=== PATIENT | female | born 1960 | race Caucasian/White ===

== ENCOUNTER 2025-03-31 22:57 | Inpatient (IN) | payer MEDICARE, MEDICAID, SELFPAY ==
[2025-04-01 00:04] VITALS: BMI 34.5
[2025-04-01 00:05] VITALS: BP 137/67; PULSE 75; RESP 16; TEMP 36.5; O2SAT 97
--- NOTE | 2025-04-01 01:33 | PC.ADMIT ---
Pt is a 64yo female, admitted on CV to [facility] for treatment of SI. She presented with ongoing evidence of worsening depression with hopelessness and SI. She is worried that she will act on suicidal thoughts as she has done it in the past and revealed a plan to overdose on insulin. Pt with the history of suicidal attempt and multiple risk factors including intractable headaches and chronic pain. Per unit admission, Pt was calm and cooperative, A & O x4, denies SI/HI/AV/VH. She declined to signed any release forms, states I am tired now, I will do it tomorrow. Safety check was unremarkable and v/s done. Treatment plans and safety tools initiated. Hospitalist contacted for consultation. Pt c/o having sleep apnea and can not sleep without her CPAP machine. She was placed on 5 minutes check/equipment/CPAP observation at bedtime and 15 minutes observation at day time.
[2025-04-01 08:00] VITALS: BP 136/60; PULSE 60; RESP 18; TEMP 36.6; O2SAT 96
--- NOTE | 2025-04-01 08:15 | HO.PM.IMCN ---
History of Present Illness Data of Consult Service Date: 04/01/25 Primary Care Provider: Unknown Physician HPI Reason for consult: Medical H&P 64-year-old female with a past medical history of occipital neuralgia, migraines, opioid use in remission, hypertension, arthritis, aortic stenosis, history of stroke, primary adrenal insufficiency, insulin-dependent type 2 diabetes, hyperlipidemia, headaches, COURTNEY on CPAP, obesity, recurrent major depressive disorder, chronic low back pain and cirrhosis of the liver without ascites presented to the ED for 2 week long history of headaches. Her CTA head negative for dissection, large vessel occlusion or aneurysm, CTA neck without dissection or vessel occlusion, and MRI of the brain without evidence of acute intracranial pathology did not show any acute intracranial pathology. While in the hospital patient also expressed suicidal ideations and was admitted for further care. She was diagnosed with occipital neuralgia, she was started on gabapentin and they recommended follow up with the pain clinic for consideration of a nerve block after discharge. Review of Systems Review of Systems: Denies any shortness of breath, chest pain, dizziness, lightheadedness, abdominal pain or discomfort, nausea vomiting or diarrhea PMFSH Social History Household Members: None Housing: Apartment Do you presently have visiting nurse or other home services: Yes Patient Tobacco Use Status: Former Tobacco user Tobacco use type: Cigarette Smoked in Last 30 Days: No e-Cigarette/Vaping Use: Never Used Patient Interested in Nicotine Replacement: No Patient Given Instructions on How to Stop Smoking: No Second Hand Smoke Exposure: No Currently Displaying Signs/Symptoms of Drug Intoxication Withdrawal: No Have you been hit, kicked, punched, or otherwise hurt by someone within the past year? If so, by whom?: No Do you feel safe in your current relationship?: Yes Is there a partner from a previous relationship who is making you feel unsafe now?: No Are you made to feel afraid or neglected: No Advance Directives: No Advance Directives Information Provided: No Do you have thoughts of harming others: None Do you have a plan to hurt others: No Plan Recently lost weight without trying: No Eating poorly because of decreased appetite: No Nutrition Risks: No Nutritional Risk Patient : No : No Poor oral hygiene: No service: No Sexual orientation: Straight/Heterosexual Meds Allergies Allergy/AdvReac Type Severity Reaction Status Date / Time Penicillins (PCN) Allergy Rash Verified 04/01/25 00:43 Active Medications: Current Medications Acetaminophen (Acetaminophen 325 Mg Tablet) 975 mg PO Q6H PRN PRN Reason: Headache/Pain, Scale 1-10 Last Admin: 04/01/25 04:20 Dose: 975 mg Acetaminophen (Acetaminophen 325 Mg Tablet) 650 mg PO Q6H PRN PRN Reason: Headache/Pain, Scale 1-10 Al Hydroxide/Mg Hydroxide (Magnesium Hydrox/Alum Hydrox 30 Ml Oral.Susp) 30 ml PO Q6H PRN PRN Reason: Heartburn/Nausea Hydroxyzine HCl (Hydroxyzine Hcl 25 Mg Tablet) 25 mg PO Q6H PRN PRN Reason: mild anxiety Magnesium Hydroxide (Milk Of Magnesia 30 Ml Oral.Susp) 30 ml PO DAILY PRN PRN Reason: Constipation Nicotine Polacrilex (Nicotine Polacrilex 2 Mg Gum) 4 mg BUCCAL Q2H PRN PRN Reason: Nicotine Cravings Trazodone HCl (Trazodone Hcl 50 Mg Tablet) 50 mg PO BEDTIME MRX1 PRN PRN Reason: Insomnia Home Medications ?Medication ?Instructions ?Recorded ?Confirmed ?Last Taken ?Type acetaminophen 500 mg tablet 1,000 mg PO TID PRN Pain, Moderate 04/01/25 04/01/25 Unknown History aspirin 81 mg tablet,delayed 81 mg PO DAILY 04/01/25 04/01/25 Unknown History release atorvastatin 40 mg tablet 40 mg PO DAILY 04/01/25 04/01/25 Unknown History buspirone 10 mg tablet 10 mg PO TID 04/01/25 04/01/25 Unknown History celecoxib 200 mg capsule 200 mg PO BID 04/01/25 04/01/25 Unknown History cholecalciferol (vitamin D3) 25 25 mcg PO DAILY 04/01/25 04/01/25 Unknown History mcg (1,000 unit) capsule cyanocobalamin (vitamin B-12) 1,000 mcg PO DAILY 04/01/25 04/01/25 Unknown History 1,000 mcg tablet ferrous sulfate 325 mg (65 mg 325 mg PO 3XW 04/01/25 04/01/25 Unknown History iron) tablet,delayed release fludrocortisone 0.1 mg tablet 0.2 mg PO DAILY 04/01/25 04/01/25 Unknown History gabapentin 300 mg capsule 300 mg PO TID 04/01/25 04/01/25 Unknown History hydrocortisone 20 mg tablet 20 mg PO DAILY 04/01/25 04/01/25 Unknown History hydrocortisone 5 mg tablet 5 mg PO DAILY@1200 04/01/25 04/01/25 Unknown History hydrocortisone sod succ (PF) 100 100 mg IM NEEDED PRN adrenal 04/01/25 04/01/25 Unknown History mg/2 mL solution for injection crisis (Solu-Cortef Act-O-Vial (PF)) insulin glargine-yfgn 100 unit/mL 40 unit subcut BEDTIME 04/01/25 04/01/25 Unknown History (3 mL) subcutaneous pen insulin lispro 100 unit/mL See Protocol subcut TID 04/01/25 04/01/25 Unknown History subcutaneous pen (Humalog KwikPen (U-100) Insulin) lidocaine 5 % topical patch 1 patch transdermal 04/01/25 Unknown History (Lidoderm) magnesium oxide 400 mg PO DAILY 04/01/25 04/01/25 Unknown History sertraline 50 mg tablet 75 mg PO DAILY 04/01/25 04/01/25 Unknown History sumatriptan succinate 50 mg tablet 50 mg PO Q2H PRN Migraine Headache 04/01/25 04/01/25 Unknown History (Imitrex) Physical Exam Vital Signs and Narrative: Vital Signs: Last Vital Signs Temp 98 F 04/01/25 08:00 Pulse 60 04/01/25 08:00 Resp 18 04/01/25 08:00 BP 136/60 04/01/25 08:00 Pulse Ox 96 04/01/25 08:00 O2 Del Method Room Air 04/01/25 08:00 BMI result Body Mass Index 34.5 Alert and oriented X3, able to give good history. No apparent distress Neuro: CN II-X11 intact, no deficits, visual acuity intact EYES: PERRLA, EOM intact ENT: Hearing intact, lips moist, nares patent no epistaxis Cardiac: S1 S2 RRR, No ectopy 3/6 Systolic murmur Pulmonary: Lungs clear to auscultation, No increased WOB. Abdominal: BS active in all 4 quadrants, no guarding or tenderness MSK: Strength 5/5 upper and lower extremities : Deferred Extremities: No edema in lower extremities Psych: mood stable, Quiet and cooperative. Skin: Warm and dry, Intact Assessment and Plan (1) Occipital neuralgia: Status: Acute Plan 64-year-old female with past medical history below admitted to inpatient psych from [facility] after she expressed depression with suicide ideation. Depression with suicidal ideation Treatment plan per psychiatric team Occipital neuralgia Recent head imaging negative Patient started on gabapentin for management of this Also sumatriptan per the history of headache as needed Patient will need follow up with outpatient pain management clinic recommended by Neurology. Primary adrenal insufficiency Her home meds fludrocortisone and hydrocortisone will be continued Followed by Dr. Antonio at [facility] endocrinology clinic Type 2 diabetes Most recent A1c on 03/16/2025 noted to be 8.5 Continue insulin glargine and Humalog sliding scale Hyperlipidemia Continue atorvastatin Cirrhosis of liver without ascites No evidence of decompensated liver disease Follow up outpatient Chronic lower back pain Continue Tylenol, Celebrex, lidocaine patch COURTNEY on CPAP Continue CPAP at night Thank you for allowing me to participate in the care of this patient. Signing off at this time. Please reconsult of any acute concerns or issues arise
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
[2025-04-01] MEDS: Aspirin Enteric Coated 81 MG TABLET.DR PO (12:52)
[2025-04-01] MEDS: Lidocaine 4 % Patch ADH..PATCH 4 PATCH TRANSDERMA (12:57)
[2025-04-01 13:34] LABS: Glucose, Whole Blood 301 mg/dL (60-115)
[2025-04-01 16:36] LABS: Glucose, Whole Blood 255 mg/dL (60-115)
[2025-04-01 20:00] VITALS: BP 107/70; PULSE 67; RESP 16; TEMP 36.2; O2SAT 98
[2025-04-01 20:49] LABS: Glucose, Whole Blood 241 mg/dL (60-115)
[2025-04-01] MEDS: Insulin Glargine,Hum.rec.anlog 100 UNIT/ML 10 ML VIAL 30 UNIT SUBCUT (21:52)
[2025-04-02 08:00] VITALS: BP 120/59; PULSE 56; RESP 12; TEMP 36.4; O2SAT 95
[2025-04-02 08:03] LABS: Glucose, Whole Blood 170 mg/dL (60-115)
[2025-04-02 08:03] LABS: Hematocrit 39.0 % (37.0-47.0); Hemoglobin 12.9 g/dl (12.0-16.0); Imm Gran Abs Auto 0.04 X10*3/uL (0.00-0.03); Imm Gran Pct Auto 0.4 % (0.0-0.4); Lymphocytes Absolute Auto 5.3 X10*3/uL (1.2-4.9); MANUAL DIFF FLAG SCAN; Mean Corpuscular HGB Conc 33.1 g/dl (31.0-35.0); Mean Corpuscular Hemoglobin 29.4 pg (27.0-33.0); Mean Corpuscular Volume 88.8 fL (80.0-98.0); NRBC Abs Auto 0.000 X10*3/uL (0.0-0.012); NRBC Pct Auto 0.0 /100WBC (0.0-0.2); Platelet Count 197 X10*3/uL (160-400); Red Blood Count 4.39 X10*6/uL (4.20-5.50); SCAN SMEAR FLAG 1; White Blood Count 10.3 X10*3/uL (4.8-10.8)
[2025-04-02 08:14] LABS: Hemoglobin A1C 229.3930 umol/L; Total Hemoglobin (HGBA1C) 3319.7087 umol/L
[2025-04-02 08:27] LABS: Alanine Aminotransferase 34 U/L (0-31); Albumin Level 4.1 g/dL (3.5-5.0); Alkaline Phosphatase 109 U/L (39-117); Anion Gap 15 (12-20); Aspartate Amino Transferase 31 U/L (5-31); Blood Urea Nitrogen 14 mg/dL (9-16); Calcium 9.5 mg/dL (8.4-10.2); Carbon Dioxide 26 mmol/L (22-29); Chloride 105 mmol/L (96-108); Cholesterol 178 mg/dL (<200); Creatinine Clr Calc Pharmacy 88.1; Estimated Glomerular Filt Rate > 60; HDL Cholesterol 50 mg/dL (>40); Potassium 4.2 mmol/L (3.3-5.1); Sodium 142 mmol/L (135-145); Total Protein 7.1 g/dL (6.5-8.0); Triglycerides 205 mg/dL (<150)
[2025-04-02 08:44] LABS: Free T4 (Free Thyroxine) 0.72 ng/dL (0.71-1.85); Thyroid Stimulating Hormone 1.57 uIU/mL (0.32-4.0)
[2025-04-02 08:56] LABS: Folate 13.0 ng/mL (> or = 4.0); Vitamin B12 1437 pg/mL (200-900)
[2025-04-02] MEDS: Aspirin Enteric Coated 81 MG TABLET.DR PO (09:16)
[2025-04-02] MEDS: Mineral Oil/Petrolatum,White 106 GM Tube 1 APPL TOPICAL ×2 (09:19→20:39)
[2025-04-02] MEDS: Lidocaine 4 % Patch ADH..PATCH 4 PATCH TRANSDERMA (09:21)
[2025-04-02] MEDS: Ferrous Sulfate 324 MG TABLET.DR PO (09:26)
[2025-04-02 11:48] LABS: Glucose, Whole Blood 277 mg/dL (60-115)
--- NOTE | 2025-04-02 12:04 | HO.PSYCHPN ---
Subjective Subjective Date of Service: 04/02/25 Reason For Visit: F32 Subjective Notes: Ambriz Warning and 3 Day Healthcare Proxy: Yes (Daughter is her legal Healthcare proxy. ) Guardianship: No Medical Problems Affecting Mental Status: No Interim History: Medical record and nursing notes reviewed; case discussed during rounds with team/nursing staff, and met with patient for supportive therapy/psychoeducation, as well as medication management. Patient slept through the night, was medication compliant. Compliant with insulin and sliding scale for POC. She refused the EKG yesterday. Denies depression and anxiety today. She reports that she slept much better last night, mostly isolated in bed, resting this morning. She is happy that she is moving down to [facility]. Rechecked 3 day. Appreciate the care we provide here on the unit. Denies suicidal thoughts and other safety concerns. Medication Compliance: Yes Side effects from medications: No Attending Groups: Intermittent Review of Systems Acute medical concerns: No Medical Review of Systems: unchanged Review of Systems Review of Systems Denies any shortness of breath, chest pain, dizziness, lightheadedness, abdominal pain or discomfort, nausea vomiting or diarrhea. However reports chronic headache, back pain, shoulder pain. Mental Status Exam Mental Status Exam Narrative: Patient is alert and oriented x3; behavior is cooperative, friendly with mild to moderate anxiety and depression; patient is not in distress; dressed in casual l attire with adequate hygiene she was lying in bed covered with hospital blanket mostly from the head down; mood is described as good and affect congruent; eye contact appropriate; Speech is normal rate, volume and prosody and not pressured; no stuttering during assessment today, no psychomotor agitation/retardation present; thought process is organized and goal directed; Thought content is WNL, pertinent to relevant topics and without any delusional content, paranoid ideation or grandiosity; denies any SI/SIB/HI. Denies AH and there is no evidence of perceptual disturbance. Patient's insight and judgment improving. Diagnostics Vital Signs (24Hr): Vital Signs - 24 hr 04/01/25 20:00 04/02/25 08:00 Temperature 97.2 F 97.6 F Pulse Rate 67 56 Respiratory Rate 16 12 Blood Pressure 107/70 120/59 L Pulse Oximetry 98 95 Oxygen Delivery Method Room Air Room Air BMI result Body Mass Index 34.5 Labs 04/02/25 07:46 04/02/25 07:46 Labs: Laboratory Results - last 48 hr 04/01/25 04/01/25 04/01/25 13:29 16:31 20:44 WBC RBC Hgb Hct MCV MCH MCHC RDW Plt Count MPV Immature Gran % (Auto) Neut % (Auto) Lymph % (Auto) Monroe % (Auto) Eos % (Auto) Baso % (Auto) Lymph # (Auto) Monroe # (Auto) Eos # (Auto) Baso # (Auto) Abs Immat Gran (auto) Absolute Neuts (auto) Absolute Nucleated RBC Nucleated RBC % (auto) Smear Tech's Comments Sodium Potassium Chloride Carbon Dioxide Anion Gap BUN Creatinine Estim Creat Clear Calc Estimated GFR POC Glucose 301 H 255 H 241 H Random Glucose Estimat Average Glucose Hemoglobin A1c % Calcium Total Bilirubin Direct Bilirubin AST ALT Alkaline Phosphatase Total Protein Albumin Triglycerides Cholesterol LDL Cholesterol, Calc HDL Cholesterol Vitamin B12 Folate TSH Free T4 04/02/25 04/02/25 04/02/25 07:46 08:00 11:44 WBC 10.3 RBC 4.39 Hgb 12.9 Hct 39.0 MCV 88.8 MCH 29.4 MCHC 33.1 RDW 13.9 Plt Count 197 MPV 9.5 Immature Gran % (Auto) 0.4 Neut % (Auto) 38.7 L Lymph % (Auto) 51.8 H Monroe % (Auto) 6.0 Eos % (Auto) 2.4 Baso % (Auto) 0.7 Lymph # (Auto) 5.3 H Monroe # (Auto) 0.6 Eos # (Auto) 0.3 Baso # (Auto) 0.1 Abs Immat Gran (auto) 0.04 H Absolute Neuts (auto) 4.0 Absolute Nucleated RBC 0.000 Nucleated RBC % (auto) 0.0 Smear Tech's Comments VERIFIED Sodium 142 Potassium 4.2 Chloride 105 Carbon Dioxide 26 Anion Gap 15 BUN 14 Creatinine 0.81 Estim Creat Clear Calc 88.1 Estimated GFR > 60 POC Glucose 170 H 277 H Random Glucose 167 H Estimat Average Glucose 197 Hemoglobin A1c % 8.5 H Calcium 9.5 Total Bilirubin 1.2 H Direct Bilirubin 0.3 AST 31 ALT 34 H Alkaline Phosphatase 109 Total Protein 7.1 Albumin 4.1 Triglycerides 205 H Cholesterol 178 LDL Cholesterol, Calc 87 HDL Cholesterol 50 Vitamin B12 1437 H Folate 13.0 TSH 1.57 Free T4 0.72 Medications Medications Current Medications Acetaminophen (Acetaminophen 325 Mg Tablet) 975 mg PO TID PRN PRN Reason: Pain, Moderate Last Admin: 04/02/25 10:03 Dose: 975 mg Al Hydroxide/Mg Hydroxide (Magnesium Hydrox/Alum Hydrox 30 Ml Oral.Susp) 30 ml PO Q6H PRN PRN Reason: Heartburn/Nausea Aspirin (Aspirin Enteric Coated 81 Mg Tablet.) 81 mg PO DAILY [facility] Last Admin: 04/02/25 09:16 Dose: 81 mg Atorvastatin Calcium (Atorvastatin Calcium 40 Mg Tablet) 40 mg PO DAILY [facility] Last Admin: 04/02/25 09:17 Dose: 40 mg Buspirone HCl (Buspirone Hcl 10 Mg Tablet) 10 mg PO TID [facility] Last Admin: 04/02/25 09:17 Dose: 10 mg Celecoxib (Celecoxib 200 Mg Capsule) 200 mg PO BID [facility] Last Admin: 04/02/25 09:19 Dose: 200 mg Cyanocobalamin (Cyanocobalamin (Vitamin B-12) 1,000 Mcg Tablet) 1,000 mcg PO DAILY [facility] Last Admin: 04/02/25 09:19 Dose: 1,000 mcg Ferrous Sulfate (Ferrous Sulfate 324 Mg Tablet.) 324 mg PO MoWeFr [facility] Last Admin: 04/02/25 09:26 Dose: 324 mg Fludrocortisone Acetate (Fludrocortisone Acetate 0.1 Mg Tablet) 0.2 mg PO DAILY [facility] Last Admin: 04/02/25 09:16 Dose: 0.2 mg Gabapentin (Gabapentin 100 Mg Capsule) 200 mg PO TID [facility] Last Admin: 04/02/25 09:16 Dose: 200 mg Hydrocortisone (Hydrocortisone 10 Mg Tablet) 5 mg PO DAILY@1200 SCAR[place]TT Hydrocortisone (Hydrocortisone 10 Mg Tablet) 20 mg PO DAILY [facility] Last Admin: 04/02/25 09:18 Dose: 20 mg Hydrocortisone Sodium Succinate (Hydrocortisone Sod Succ/Pf 100 Mg Vial) 100 mg IM ONCE PRN PRN Reason: ADRENAL CRISIS Hydroxyzine HCl (Hydroxyzine Hcl 25 Mg Tablet) 25 mg PO Q6H PRN PRN Reason: mild anxiety Insulin Glargine (Insulin Glargine,Hum.Rec.Anlog 100 Unit/Ml 10 Ml Vial) 30 unit SUBCUT BEDTIME [facility] Last Admin: 04/01/25 21:52 Dose: 30 unit Insulin Human Lispro (Insulin Lispro 100 Unit/Ml 3 Ml Vial) 0 unit SUBCUT QIDACHS [facility]; Protocol Last Admin: 04/02/25 11:58 Dose: 6 unit Lidocaine (Lidocaine 4 % Patch Adh..Patch) 4 patch TRANSDERMA DAILY [facility]; Protocol Last Admin: 04/02/25 09:21 Dose: 4 patch Magnesium Hydroxide (Milk Of Magnesia 30 Ml Oral.Susp) 30 ml PO DAILY PRN PRN Reason: Constipation Magnesium Oxide (Magnesium Oxide 400 Mg Tablet) 400 mg PO DAILY [facility] Last Admin: 04/02/25 09:17 Dose: 400 mg Multi-Ingred Cream/Lotion/Oil/Oint (Mineral Oil/Petrolatum,White 106 Gm Tube) 1 appl TOPICAL BID [facility]; Protocol Last Admin: 04/02/25 09:19 Dose: 1 appl Nicotine Polacrilex (Nicotine Polacrilex 2 Mg Gum) 4 mg BUCCAL Q2H PRN PRN Reason: Nicotine Cravings Sertraline HCl (Sertraline Hcl 100 Mg Tablet) 100 mg PO DAILY [facility] Last Admin: 04/02/25 09:19 Dose: 100 mg Sumatriptan Succinate (Sumatriptan Succinate 50 Mg Tablet) 50 mg PO Q2H PRN PRN Reason: Migraine Headache Trazodone HCl (Trazodone Hcl 50 Mg Tablet) 50 mg PO BEDTIME MRX1 PRN PRN Reason: Insomnia Last Admin: 04/01/25 21:56 Dose: 50 mg Vitamin D (Cholecalciferol (Vitamin D3) 25 Mcg Tablet) 25 mcg PO DAILY [facility] Last Admin: 04/02/25 09:18 Dose: 25 mcg Allergies Allergies Allergy/AdvReac Type Severity Reaction Status Date / Time Penicillins (PCN) Allergy Rash Verified 04/01/25 00:43 Assessment & Plan Assessment & Plan (1) Occipital neuralgia: Status: Acute Code(s): M54.81 - Occipital neuralgia (2) MDD (major depressive disorder), recurrent episode, moderate: Status: Acute Code(s): F33.1 - Major depressive disorder, recurrent, moderate (3) PTSD (post-traumatic stress disorder): Status: Acute Code(s): F43.10 - Post-traumatic stress disorder, unspecified Plan HPI: patient is a 64 years old Bulgarian speaking female with past history of depression, PTSD, sleep apnea CVA, chronic back and shoulder pain, unretractable headache who presented to the emergency room with ongoing evidence of worsening depression, hopelessness with suicidal thoughts. She has been having suicidal thoughts in the long period of time on and off, does not find a reason to continue living with the her son. Feeling pressure to be alive by social. History of severe overdose suicidal attempt after her son passed 3 years ago where she was admitted to psychiatric hospital they told me I have a slight break . She do not think she going to be get over with the of her son who due to cancer. Increased depression, increased irritable mood, especially after the stroke last year. The symptoms got worse in the past 3 weeks. She has deputy director of nursing coming to the house to have per 10 hours a day. VNA also comes daily to manage her medication and insulin, using medical beds at home, and sometimes needs a walker, using CPAP at bedtime for sleep. Speech was within normal limit, however some stuttering observe when she gets anxious. Alert and oriented x3. No SI/SIB/HI/AVH. Formulation/clinical reasoning: Suicidal thoughts, worsening depression and anxiety in the past 3 weeks, feeling hopeless. Grieving the of her son even though he 3 years ago due to cancer, serious suicide attempts overdose on pills after he passed. Feel like she never going to get over over with the of her son. Depression, PTSD, sleep apnea severe retractable headache, lowers back and shoulders pain that never resolved. Given the above information, patient could be benefit to be in restrictive environment for her own safety. We will continue to monitor her mental status change, adjust medication to address depression and anxiety, and refer patient to outpatient psychiatry services. Hospital course: 04/01/25: Continue with home medications with some changing my the patient requests in terms of psychotropic medications. Reports that BuSpar is not helpful. Sertraline is helpful and agreed to have it increased for depression. Patient good like to taper off from gabapentin which is not helpful for her pain nor psychiatrically. Sertraline increased from 75 to 100 mg daily for depression Gabapentin taper down from 300 mg to 200 t.i.d. for pain/mood Continue with other home medications. 04/02/25: CPAP at night, slept better than the night before, calm pleasant and cooperative, mostly isolated him herself in bed. Denies depression or anxiety today. Denies safety concerns. Retract her 3 day. Mood out to [place] which she is happy about. No behavior issues. Doc to doc done prior to transfer. Plan Patient on 15 minute checks for safety. 5 min check at night for CPAP. Admitted to [facility]. Retracted 3 days Medication trials was not helpful: Cymbalta give her vivid dream and increase suicidal thoughts Daughter is her HCP. Not available in chart. Work with treatment team to do collateral and aftercare follow-up appointments. Patient has psychiatrist PCP. No outpatient therapist. She is not interested in referral to new outpatient therapist. She has been working with OT and PT. Patient has a VNA. Due to medical necessary, patient is appropriate to transfer to [facility]. Seen by Hospitalist on 04/01/25. Some abnormal lab results regarding triglyceride, A1c, vitamin B12 is high. TSH and free T4 within normal limits. Patient educated on: diagnosis, medication risk/benefits and therapeutic strategies Informed Consent: understands and further education needed Reason for continued inpatient stay Substantial Risk for: med/psych decompensation Time Spent With Patient Time: Total time managing care of this patient today ____ minutes.
--- NOTE | 2025-04-02 12:34 | PC.NURSE ---
This RN provided hand-off report to Elizabeth IZAGUIRRE. Pt was transferred to at 1235 via wheelchair. Pt's paper chart, belongings and valuables were also transferred.
--- NOTE | 2025-04-02 14:42 | PC.NURSE ---
Pt transferred from . She arrived on the unit at 12:37 via WC accompanied by 2 MHCs. She is alert and oriented in all spheres. She acknowledges some memory problems since her stroke. She denies depression, anxiety, SI, HI, and AVH. She was oriented to her room and the unit. She was visible on the unit remainder of shift, socializing with peers and attending groups.
[2025-04-02 16:15] LABS: Glucose, Whole Blood 310 mg/dL (60-115)
[2025-04-02 20:00] VITALS: BP 139/63; PULSE 67; RESP 16; TEMP 36.8; O2SAT 99
[2025-04-02 20:33] LABS: Glucose, Whole Blood 344 mg/dL (60-115)
[2025-04-02] MEDS: Insulin Glargine,Hum.rec.anlog 100 UNIT/ML 10 ML VIAL 30 UNIT SUBCUT (20:34)
--- NOTE | 2025-04-03 | ECG_ITS ---
Test Reason : Hx of CVA; screening exam Blood Pressure : */* mmHG Vent. Rate : 66 BPM Atrial Rate : 66 BPM P-R Int : 112 ms QRS Dur : 90 ms QT Int : 406 ms P-R-T Axes : -2 19 43 degrees QTcB Int : 425 ms Normal sinus rhythm Normal ECG No previous ECGs available Referred By: Juventino Mccullough Electronically Signed By: ADDSION RAMOS
[2025-04-03 06:48] LABS: Glucose, Whole Blood 172 mg/dL (60-115)
[2025-04-03 07:46] VITALS: BP 154/70; PULSE 53; RESP 16; TEMP 37.1; O2SAT 98
[2025-04-03 11:06] LABS: Glucose, Whole Blood 144 mg/dL (60-115)
[2025-04-03] MEDS: Mineral Oil/Petrolatum,White 106 GM Tube 1 APPL TOPICAL ×2 (11:08→20:48)
[2025-04-03] MEDS: Aspirin Enteric Coated 81 MG TABLET.DR PO (11:09)
[2025-04-03] MEDS: Lidocaine 4 % Patch ADH..PATCH 4 PATCH TRANSDERMA (11:11)
[2025-04-03 16:20] LABS: Glucose, Whole Blood 331 mg/dL (60-115)
--- NOTE | 2025-04-03 16:27 | P.PNPSI_ITS ---
Subjective Subjective Date of Service: 04/03/25 Reason For Visit: F32 Interim History: patient seen in day area. She presents with full range affect. She states that she is feeling very good. Denies SI/HI/AVH. Voices pride about working on coping strategies to deal with racing thoughts and grief related cognitions as well. Reports trazodone helping. Would like to discuss blood suagr mgt Medication Compliance: Yes Side effects from medications: No Attending Groups: Yes Review of Systems high blood sugars Medical Review of Systems: unchanged Mental Status Exam Mental Status Exam Narrative: Appearance: casual attire, adequate grooming and hygiene Behavior: cooperative with encounter Orientation: alert, generally oriented to person, place, time Memory: grossly intact to recent/remote events Attention: able to attend to the encounter discussion Psychomotor Function: no agitation or slowing; no abnormal gestures or movements Speech: normal rate, tone, volume Mood: very good Affect: full range Thought Process: coherent Thought Content: denies SI/HI Hallucinations: denies AVH delusions: none evinced Insight: mild impairment Judgment: mild impairment Impulsivity: none noted Diagnostics Vital Signs (24Hr): Vital Signs - 24 hr 04/02/25 20:00 04/03/25 07:46 Temperature 98.2 F 98.8 F Pulse Rate 67 53 Respiratory Rate 16 16 Blood Pressure 139/63 154/70 H Pulse Oximetry 99 98 Oxygen Delivery Method Room Air BMI result Body Mass Index 34.5 Labs 04/02/25 07:46 04/02/25 07:46 Labs: Laboratory Results - last 48 hr 04/01/25 04/01/25 04/02/25 16:31 20:44 07:46 WBC 10.3 RBC 4.39 Hgb 12.9 Hct 39.0 MCV 88.8 MCH 29.4 MCHC 33.1 RDW 13.9 Plt Count 197 MPV 9.5 Immature Gran % (Auto) 0.4 Neut % (Auto) 38.7 L Lymph % (Auto) 51.8 H [place] % (Auto) 6.0 Eos % (Auto) 2.4 Baso % (Auto) 0.7 Lymph # (Auto) 5.3 H [place] # (Auto) 0.6 Eos # (Auto) 0.3 Baso # (Auto) 0.1 Abs Immat Gran (auto) 0.04 H Absolute Neuts (auto) 4.0 Absolute Nucleated RBC 0.000 Nucleated RBC % (auto) 0.0 Smear Tech's Comments VERIFIED Sodium 142 Potassium 4.2 Chloride 105 Carbon Dioxide 26 Anion Gap 15 BUN 14 Creatinine 0.81 Estim Creat Clear Calc 88.1 Estimated GFR > 60 POC Glucose 255 H 241 H Random Glucose 167 H Estimat Average Glucose 197 Hemoglobin A1c % 8.5 H Calcium 9.5 Total Bilirubin 1.2 H Direct Bilirubin 0.3 AST 31 ALT 34 H Alkaline Phosphatase 109 Total Protein 7.1 Albumin 4.1 Triglycerides 205 H Cholesterol 178 LDL Cholesterol, Calc 87 HDL Cholesterol 50 Vitamin B12 1437 H Folate 13.0 TSH 1.57 Free T4 0.72 04/02/25 04/02/25 04/02/25 08:00 11:44 16:11 WBC RBC Hgb Hct MCV MCH MCHC RDW Plt Count MPV Immature Gran % (Auto) Neut % (Auto) Lymph % (Auto) [place] % (Auto) Eos % (Auto) Baso % (Auto) Lymph # (Auto) [place] # (Auto) Eos # (Auto) Baso # (Auto) Abs Immat Gran (auto) Absolute Neuts (auto) Absolute Nucleated RBC Nucleated RBC % (auto) Smear Tech's Comments Sodium Potassium Chloride Carbon Dioxide Anion Gap BUN Creatinine Estim Creat Clear Calc Estimated GFR POC Glucose 170 H 277 H 310 H Random Glucose Estimat Average Glucose Hemoglobin A1c % Calcium Total Bilirubin Direct Bilirubin AST ALT Alkaline Phosphatase Total Protein Albumin Triglycerides Cholesterol LDL Cholesterol, Calc HDL Cholesterol Vitamin B12 Folate TSH Free T4 04/02/25 04/03/25 04/03/25 20:20 06:43 10:57 WBC RBC Hgb Hct MCV MCH MCHC RDW Plt Count MPV Immature Gran % (Auto) Neut % (Auto) Lymph % (Auto) [place] % (Auto) Eos % (Auto) Baso % (Auto) Lymph # (Auto) [place] # (Auto) Eos # (Auto) Baso # (Auto) Abs Immat Gran (auto) Absolute Neuts (auto) Absolute Nucleated RBC Nucleated RBC % (auto) Smear Tech's Comments Sodium Potassium Chloride Carbon Dioxide Anion Gap BUN Creatinine Estim Creat Clear Calc Estimated GFR POC Glucose 344 H 172 H 144 H Random Glucose Estimat Average Glucose Hemoglobin A1c % Calcium Total Bilirubin Direct Bilirubin AST ALT Alkaline Phosphatase Total Protein Albumin Triglycerides Cholesterol LDL Cholesterol, Calc HDL Cholesterol Vitamin B12 Folate TSH Free T4 04/03/25 16:15 WBC RBC Hgb Hct MCV MCH MCHC RDW Plt Count MPV Immature Gran % (Auto) Neut % (Auto) Lymph % (Auto) [place] % (Auto) Eos % (Auto) Baso % (Auto) Lymph # (Auto) [place] # (Auto) Eos # (Auto) Baso # (Auto) Abs Immat Gran (auto) Absolute Neuts (auto) Absolute Nucleated RBC Nucleated RBC % (auto) Smear Tech's Comments Sodium Potassium Chloride Carbon Dioxide Anion Gap BUN Creatinine Estim Creat Clear Calc Estimated GFR POC Glucose 331 H Random Glucose Estimat Average Glucose Hemoglobin A1c % Calcium Total Bilirubin Direct Bilirubin AST ALT Alkaline Phosphatase Total Protein Albumin Triglycerides Cholesterol LDL Cholesterol, Calc HDL Cholesterol Vitamin B12 Folate TSH Free T4 Medications Medications Current Medications Acetaminophen (Acetaminophen 325 Mg Tablet) 975 mg PO TID PRN PRN Reason: Pain, Moderate Last Admin: 04/03/25 11:10 Dose: 975 mg Al Hydroxide/Mg Hydroxide (Magnesium Hydrox/Alum Hydrox 30 Ml Oral.Susp) 30 ml PO Q6H PRN PRN Reason: Heartburn/Nausea Aspirin (Aspirin Enteric Coated 81 Mg Tablet.) 81 mg PO DAILY [facility] Last Admin: 04/03/25 11:09 Dose: 81 mg Atorvastatin Calcium (Atorvastatin Calcium 40 Mg Tablet) 40 mg PO DAILY [facility] Last Admin: 04/03/25 11:09 Dose: 40 mg Buspirone HCl (Buspirone Hcl 10 Mg Tablet) 10 mg PO TID [facility] Last Admin: 04/03/25 15:04 Dose: 10 mg Celecoxib (Celecoxib 200 Mg Capsule) 200 mg PO BID [facility] Last Admin: 04/03/25 11:09 Dose: 200 mg Cyanocobalamin (Cyanocobalamin (Vitamin B-12) 1,000 Mcg Tablet) 1,000 mcg PO DAILY [facility] Last Admin: 04/03/25 11:09 Dose: 1,000 mcg Ferrous Sulfate (Ferrous Sulfate 324 Mg Tablet.) 324 mg PO MoWeFr [facility] Last Admin: 04/02/25 09:26 Dose: 324 mg Fludrocortisone Acetate (Fludrocortisone Acetate 0.1 Mg Tablet) 0.2 mg PO DAILY [facility] Last Admin: 04/03/25 11:09 Dose: 0.2 mg Gabapentin (Gabapentin 100 Mg Capsule) 200 mg PO TID [facility] Last Admin: 04/03/25 15:04 Dose: 200 mg Hydrocortisone (Hydrocortisone 10 Mg Tablet) 5 mg PO DAILY@1200 [facility] Last Admin: 04/03/25 13:54 Dose: 5 mg Hydrocortisone (Hydrocortisone 10 Mg Tablet) 20 mg PO DAILY [facility] Last Admin: 04/03/25 11:10 Dose: 20 mg Hydrocortisone Sodium Succinate (Hydrocortisone Sod Succ/Pf 100 Mg Vial) 100 mg IM ONCE PRN PRN Reason: ADRENAL CRISIS Hydroxyzine HCl (Hydroxyzine Hcl 25 Mg Tablet) 25 mg PO Q6H PRN PRN Reason: mild anxiety Insulin Glargine (Insulin Glargine,Hum.Rec.Anlog 100 Unit/Ml 10 Ml Vial) 30 unit SUBCUT BEDTIME [facility] Last Admin: 04/02/25 20:34 Dose: 30 unit Insulin Human Lispro (Insulin Lispro 100 Unit/Ml 3 Ml Vial) 0 unit SUBCUT QIDACHS [facility]; Protocol Last Admin: 04/03/25 11:00 Dose: Not Given Lidocaine (Lidocaine 4 % Patch Adh..Patch) 4 patch TRANSDERMA DAILY [facility]; Protocol Last Admin: 04/03/25 11:11 Dose: 4 patch Magnesium Hydroxide (Milk Of Magnesia 30 Ml Oral.Susp) 30 ml PO DAILY PRN PRN Reason: Constipation Magnesium Oxide (Magnesium Oxide 400 Mg Tablet) 400 mg PO DAILY [facility] Last Admin: 04/03/25 11:09 Dose: 400 mg Multi-Ingred Cream/Lotion/Oil/Oint (Mineral Oil/Petrolatum,White 106 Gm Tube) 1 appl TOPICAL BID [facility]; Protocol Last Admin: 04/03/25 11:08 Dose: 1 appl Nicotine Polacrilex (Nicotine Polacrilex 2 Mg Gum) 4 mg BUCCAL Q2H PRN PRN Reason: Nicotine Cravings Sertraline HCl (Sertraline Hcl 100 Mg Tablet) 100 mg PO DAILY [facility] Last Admin: 04/03/25 11:10 Dose: 100 mg Sumatriptan Succinate (Sumatriptan Succinate 50 Mg Tablet) 50 mg PO Q2H PRN PRN Reason: Migraine Headache Trazodone HCl (Trazodone Hcl 50 Mg Tablet) 50 mg PO BEDTIME MRX1 PRN PRN Reason: Insomnia Last Admin: 04/02/25 21:41 Dose: 50 mg Vitamin D (Cholecalciferol (Vitamin D3) 25 Mcg Tablet) 25 mcg PO DAILY [facility] Last Admin: 04/03/25 11:09 Dose: 25 mcg Allergies Allergies Allergy/AdvReac Type Severity Reaction Status Date / Time Penicillins (PCN) Allergy Rash Verified 04/01/25 00:43 Assessment & Plan Assessment & Plan (1) Occipital neuralgia: Status: Acute Code(s): M54.81 - Occipital neuralgia (2) MDD (major depressive disorder), recurrent episode, moderate: Status: Acute Code(s): F33.1 - Major depressive disorder, recurrent, moderate (3) PTSD (post-traumatic stress disorder): Status: Acute Code(s): F43.10 - Post-traumatic stress disorder, unspecified Plan HPI: patient is a 64 years old Occitan speaking female with past history of depression, PTSD, sleep apnea CVA, chronic back and shoulder pain, unretractable headache who presented to the emergency room with ongoing evidence of worsening depression, hopelessness with suicidal thoughts. She has been having suicidal thoughts in the long period of time on and off, does not find a reason to continue living with the her son. Feeling pressure to be alive by social. History of severe overdose suicidal attempt after her son passed 3 years ago where she was admitted to [facility] they told me I have a slight break . She do not think she going to be get over with the of her son who due to cancer. Increased depression, increased irritable mood, especially after the stroke last year. The symptoms got worse in the past 3 weeks. She has manager nursing coming to the house to have per 10 hours a day. VNA also comes daily to manage her medication and insulin, using medical beds at home, and sometimes needs a walker, using CPAP at bedtime for sleep. Speech was within normal limit, however some stuttering observe when she gets anxious. Alert and oriented x3. No SI/SIB/HI/AVH. Formulation/clinical reasoning: Suicidal thoughts, worsening depression and anxiety in the past 3 weeks, feeling hopeless. Grieving the of her son even though he 3 years ago due to cancer, serious suicide attempts overdose on pills after he passed. Feel like she never going to get over over with the of her son. Depression, PTSD, sleep apnea severe retractable headache, lowers back and shoulders pain that never resolved. Given the above information, patient could be benefit to be in restrictive environment for her own safety. We will continue to monitor her mental status change, adjust medication to address depression and anxiety, and refer patient to outpatient psychiatry services. Hospital course: 04/01/25: Continue with home medications with some changing my the patient requests in terms of psychotropic medications. Reports that BuSpar is not helpful. Sertraline is helpful and agreed to have it increased for depression. Patient good like to taper off from gabapentin which is not helpful for her pain nor psychiatrically. Sertraline increased from 75 to 100 mg daily for depression Gabapentin taper down from 300 mg to 200 t.i.d. for pain/mood Continue with other home medications. 04/02/25: CPAP at night, slept better than the night before, calm pleasant and cooperative, mostly isolated him herself in bed. Denies depression or anxiety today. Denies safety concerns. Retract her 3 day. Mood out to [place] which she is happy about. No behavior issues. Doc to doc done prior to transfer. Plan Patient on 15 minute checks for safety. 5 min check at night for CPAP. Admitted to M3. Retracted 3 days Medication trials was not helpful: Cymbalta give her vivid dream and increase suicidal thoughts Daughter is her HCP. Not available in chart. Work with treatment team to do collateral and aftercare follow-up appointments. Patient has psychiatrist PCP. No outpatient therapist. She is not interested in referral to new outpatient therapist. She has been working with OT and PT. Patient has a VNA. Due to medical necessary, patient is appropriate to transfer to [facility]. Seen by Hospitalist on 04/01/25. Some abnormal lab results regarding triglyceride, A1c, vitamin B12 is high. TSH and free T4 within normal limits. 04/03 - no changes in mgt plan - will review blood sugar mgt with patient tomorrow Patient educated on: diagnosis and medication risk/benefits Informed Consent: understands Reason for continued inpatient stay Substantial Risk for: harm to self Time Spent With Patient Time: Total time managing care of this patient today ____ minutes.
[2025-04-03 20:00] VITALS: BP 157/68; PULSE 68; RESP 16; TEMP 36.5; O2SAT 99
[2025-04-03 20:36] LABS: Glucose, Whole Blood 296 mg/dL (60-115)
[2025-04-03] MEDS: Insulin Glargine,Hum.rec.anlog 100 UNIT/ML 10 ML VIAL 30 UNIT SUBCUT (20:44)
[2025-04-04 06:56] LABS: Glucose, Whole Blood 153 mg/dL (60-115)
[2025-04-04 08:22] VITALS: BP 126/74; PULSE 67; RESP 20; TEMP 36.3; O2SAT 100
[2025-04-04] MEDS: Aspirin Enteric Coated 81 MG TABLET.DR PO (08:25)
[2025-04-04] MEDS: Mineral Oil/Petrolatum,White 106 GM Tube 1 APPL TOPICAL ×2 (08:28→21:08)
[2025-04-04 11:35] LABS: Glucose, Whole Blood 256 mg/dL (60-115)
[2025-04-04] MEDS: Lidocaine 4 % Patch ADH..PATCH 4 PATCH TRANSDERMA (13:36)
--- NOTE | 2025-04-04 15:56 | HO.PSYCHPN ---
Subjective Subjective Date of Service: 04/04/25 Reason For Visit: F32 Interim History: Patient seen in her room. She was calm. Voiced frustration about the lack of psychosocial activities on the unit today. She described her mood as bored. She denied SI/HI/AVH. We discussed her blood sugars, she states that she has an appointment in April with her mold technician. She states that taking the second dose of trazodone helped her last night, and she would like to combine the two doses moving forward. Medication Compliance: Yes Side effects from medications: No Attending Groups: Yes Review of Systems Acute medical concerns: No Medical Review of Systems: unchanged Mental Status Exam Mental Status Exam Narrative: Appearance: casual attire, adequate grooming and hygiene Behavior: cooperative with encounter Orientation: alert, generally oriented to person, place, time Memory: grossly intact to recent/remote events Attention: able to attend to the encounter discussion Psychomotor Function: no agitation or slowing; no abnormal gestures or movements Speech: normal rate, tone, volume Mood: bored Affect: appropriate to context Thought Process: coherent Thought Content: denies SI/HI Hallucinations: denies AVH delusions: none evinced Insight: mild impairment Judgment: mild impairment Impulsivity: none noted Diagnostics Vital Signs (24Hr): Vital Signs - 24 hr 04/03/25 20:00 04/04/25 08:22 Temperature 97.7 F 97.4 F Pulse Rate 68 67 Respiratory Rate 16 20 Blood Pressure 157/68 H 126/74 Pulse Oximetry 99 100 Oxygen Delivery Method Room Air Room Air BMI result Body Mass Index 34.5 Labs 04/02/25 07:46 04/02/25 07:46 Labs: Laboratory Results - last 48 hr 04/02/25 04/02/25 04/03/25 16:11 20:20 06:43 POC Glucose 310 H 344 H 172 H 04/03/25 04/03/25 04/03/25 10:57 16:15 20:31 POC Glucose 144 H 331 H 296 H 04/04/25 04/04/25 06:42 11:31 POC Glucose 153 H 256 H Medications Medications Current Medications Acetaminophen (Acetaminophen 325 Mg Tablet) 975 mg PO TID PRN PRN Reason: Pain, Moderate Last Admin: 04/03/25 11:10 Dose: 975 mg Al Hydroxide/Mg Hydroxide (Magnesium Hydrox/Alum Hydrox 30 Ml Oral.Susp) 30 ml PO Q6H PRN PRN Reason: Heartburn/Nausea Aspirin (Aspirin Enteric Coated 81 Mg Tablet.) 81 mg PO DAILY [facility] Last Admin: 04/04/25 08:25 Dose: 81 mg Atorvastatin Calcium (Atorvastatin Calcium 40 Mg Tablet) 40 mg PO DAILY [facility] Last Admin: 04/04/25 08:25 Dose: 40 mg Buspirone HCl (Buspirone Hcl 10 Mg Tablet) 10 mg PO TID [facility] Last Admin: 04/04/25 14:46 Dose: 10 mg Celecoxib (Celecoxib 200 Mg Capsule) 200 mg PO BID [facility] Last Admin: 04/04/25 08:27 Dose: 200 mg Cyanocobalamin (Cyanocobalamin (Vitamin B-12) 1,000 Mcg Tablet) 1,000 mcg PO DAILY [facility] Last Admin: 04/04/25 08:26 Dose: 1,000 mcg Ferrous Sulfate (Ferrous Sulfate 324 Mg Tablet.) 324 mg PO MoWeFr [facility] Last Admin: 04/02/25 09:26 Dose: 324 mg Fludrocortisone Acetate (Fludrocortisone Acetate 0.1 Mg Tablet) 0.2 mg PO DAILY [facility] Last Admin: 04/04/25 08:25 Dose: 0.2 mg Gabapentin (Gabapentin 100 Mg Capsule) 200 mg PO TID [facility] Last Admin: 04/04/25 14:46 Dose: 200 mg Hydrocortisone (Hydrocortisone 10 Mg Tablet) 5 mg PO DAILY@1200 [facility] Last Admin: 04/04/25 11:39 Dose: 5 mg Hydrocortisone (Hydrocortisone 10 Mg Tablet) 20 mg PO DAILY [facility] Last Admin: 04/04/25 08:26 Dose: 20 mg Hydrocortisone Sodium Succinate (Hydrocortisone Sod Succ/Pf 100 Mg Vial) 100 mg IM ONCE PRN PRN Reason: ADRENAL CRISIS Hydroxyzine HCl (Hydroxyzine Hcl 25 Mg Tablet) 25 mg PO Q6H PRN PRN Reason: mild anxiety Insulin Glargine (Insulin Glargine,Hum.Rec.Anlog 100 Unit/Ml 10 Ml Vial) 30 unit SUBCUT BEDTIME [facility] Last Admin: 04/03/25 20:44 Dose: 30 unit Insulin Human Lispro (Insulin Lispro 100 Unit/Ml 3 Ml Vial) 0 unit SUBCUT QIDACHS [facility]; Protocol Last Admin: 04/04/25 11:38 Dose: 6 unit Lidocaine (Lidocaine 4 % Patch Adh..Patch) 4 patch TRANSDERMA DAILY [facility]; Protocol Last Admin: 04/04/25 13:36 Dose: 4 patch Magnesium Hydroxide (Milk Of Magnesia 30 Ml Oral.Susp) 30 ml PO DAILY PRN PRN Reason: Constipation Magnesium Oxide (Magnesium Oxide 400 Mg Tablet) 400 mg PO DAILY [facility] Last Admin: 04/04/25 08:25 Dose: 400 mg Multi-Ingred Cream/Lotion/Oil/Oint (Mineral Oil/Petrolatum,White 106 Gm Tube) 1 appl TOPICAL BID [facility]; Protocol Last Admin: 04/04/25 08:28 Dose: 1 appl Nicotine Polacrilex (Nicotine Polacrilex 2 Mg Gum) 4 mg BUCCAL Q2H PRN PRN Reason: Nicotine Cravings Sertraline HCl (Sertraline Hcl 100 Mg Tablet) 100 mg PO DAILY [facility] Last Admin: 04/04/25 08:24 Dose: 100 mg Sumatriptan Succinate (Sumatriptan Succinate 50 Mg Tablet) 50 mg PO Q2H PRN PRN Reason: Migraine Headache Trazodone HCl (Trazodone Hcl 50 Mg Tablet) 50 mg PO BEDTIME MRX1 PRN PRN Reason: Insomnia Last Admin: 04/03/25 22:58 Dose: 50 mg Vitamin D (Cholecalciferol (Vitamin D3) 25 Mcg Tablet) 25 mcg PO DAILY [facility] Last Admin: 04/04/25 08:27 Dose: 25 mcg Allergies Allergies Allergy/AdvReac Type Severity Reaction Status Date / Time Penicillins (PCN) Allergy Rash Verified 04/01/25 00:43 Assessment & Plan Assessment & Plan (1) Occipital neuralgia: Status: Acute Code(s): M54.81 - Occipital neuralgia (2) MDD (major depressive disorder), recurrent episode, moderate: Status: Acute Code(s): F33.1 - Major depressive disorder, recurrent, moderate (3) PTSD (post-traumatic stress disorder): Status: Acute Code(s): F43.10 - Post-traumatic stress disorder, unspecified Plan HPI: patient is a 64 years old [place] Citizen speaking female with past history of depression, PTSD, sleep apnea CVA, chronic back and shoulder pain, unretractable headache who presented to the emergency room with ongoing evidence of worsening depression, hopelessness with suicidal thoughts. She has been having suicidal thoughts in the long period of time on and off, does not find a reason to continue living with the her son. Feeling pressure to be alive by social. History of severe overdose suicidal attempt after her son passed 3 years ago where she was admitted to [facility] they told me I have a slight break . She do not think she going to be get over with the of her son who due to cancer. Increased depression, increased irritable mood, especially after the stroke last year. The symptoms got worse in the past 3 weeks. She has nursing teacher coming to the house to have per 10 hours a day. VNA also comes daily to manage her medication and insulin, using medical beds at home, and sometimes needs a walker, using CPAP at bedtime for sleep. Speech was within normal limit, however some stuttering observe when she gets anxious. Alert and oriented x3. No SI/SIB/HI/AVH. Formulation/clinical reasoning: Suicidal thoughts, worsening depression and anxiety in the past 3 weeks, feeling hopeless. Grieving the of her son even though he 3 years ago due to cancer, serious suicide attempts overdose on pills after he passed. Feel like she never going to get over over with the of her son. Depression, PTSD, sleep apnea severe retractable headache, lowers back and shoulders pain that never resolved. Given the above information, patient could be benefit to be in restrictive environment for her own safety. We will continue to monitor her mental status change, adjust medication to address depression and anxiety, and refer patient to outpatient psychiatry services. Hospital course: 04/01/25: Continue with home medications with some changing my the patient requests in terms of psychotropic medications. Reports that BuSpar is not helpful. Sertraline is helpful and agreed to have it increased for depression. Patient good like to taper off from gabapentin which is not helpful for her pain nor psychiatrically. Sertraline increased from 75 to 100 mg daily for depression Gabapentin taper down from 300 mg to 200 t.i.d. for pain/mood Continue with other home medications. 04/02/25: CPAP at night, slept better than the night before, calm pleasant and cooperative, mostly isolated him herself in bed. Denies depression or anxiety today. Denies safety concerns. Retract her 3 day. Mood out to [place] which she is happy about. No behavior issues. Doc to doc done prior to transfer. Plan Patient on 15 minute checks for safety. 5 min check at night for CPAP. Admitted to M3. Retracted 3 days Medication trials was not helpful: Cymbalta give her vivid dream and increase suicidal thoughts Daughter is her HCP. Not available in chart. Work with treatment team to do collateral and aftercare follow-up appointments. Patient has psychiatrist PCP. No outpatient therapist. She is not interested in referral to new outpatient therapist. She has been working with OT and PT. Patient has a VNA. Due to medical necessary, patient is appropriate to transfer to [facility]. Seen by Hospitalist on 04/01/25. Some abnormal lab results regarding triglyceride, A1c, vitamin B12 is high. TSH and free T4 within normal limits. 04/03 - no changes in mgt plan - will review blood sugar mgt with patient tomorrow 04/04: adjust trazodone to 100 mg QHS PRN insomnia Patient educated on: diagnosis and medication risk/benefits Informed Consent: understands Reason for continued inpatient stay Substantial Risk for: rapid decompensation Time Spent With Patient Time: Total time managing care of this patient today ____ minutes.
[2025-04-04 16:29] LABS: Glucose, Whole Blood 259 mg/dL (60-115)
[2025-04-04 20:00] VITALS: BP 129/58; PULSE 63; RESP 18; TEMP 36.3; O2SAT 95
[2025-04-04 20:09] LABS: Glucose, Whole Blood 262 mg/dL (60-115)
[2025-04-04] MEDS: Insulin Glargine,Hum.rec.anlog 100 UNIT/ML 10 ML VIAL 30 UNIT SUBCUT (21:08)
[2025-04-05 06:41] LABS: Glucose, Whole Blood 173 mg/dL (60-115)
[2025-04-05 08:00] VITALS: BP 105/53; PULSE 55; RESP 14; TEMP 36.3; O2SAT 97
[2025-04-05] MEDS: Aspirin Enteric Coated 81 MG TABLET.DR PO (09:12)
[2025-04-05] MEDS: Ferrous Sulfate 324 MG TABLET.DR PO (09:50)
[2025-04-05] MEDS: Mineral Oil/Petrolatum,White 106 GM Tube 1 APPL TOPICAL ×2 (09:51→20:53)
[2025-04-05 11:24] LABS: Glucose, Whole Blood 134 mg/dL (60-115)
--- NOTE | 2025-04-05 14:57 | HO.PSYCHPN ---
Subjective Subjective Date of Service: 04/05/25 Reason For Visit: F32 Interim History: calm, cooperative, chatty. 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 critical of care on the unit, critical of staff. requesting to stop buspar, taper gabapentin, and increase zoloft. denies SI/HI, asks to leave or saturday. per staff, anxious and expansive. eating well, taking meds. dep 3, anx 7. slept 8 hours. s/p TBI. Mental Status Exam Mental Status Exam Narrative: Patient is alert and oriented x3; behavior is cooperative, friendly with mild to moderate anxiety and depression; patient is not in distress; dressed in casual attire with adequate hygiene she was lying in bed covered with hospital blanket mostly from the neck down; mood is described as good and affect congruent; eye contact appropriate; Speech is normal rate, volume and prosody and not pressured; mild stuttering during assessment today, no psychomotor agitation/retardation present; thought process is organized and goal directed; Thought content is WNL, pertinent to relevant topics and without any delusional content, paranoid ideation or grandiosity; denies any SI/SIB/HI. there is no evidence of perceptual disturbance. Patient's insight and judgment improving. Diagnostics Vital Signs (24Hr): Vital Signs - 24 hr 04/04/25 20:00 04/05/25 08:00 Temperature 97.3 F 97.3 F Pulse Rate 63 55 Respiratory Rate 18 14 Blood Pressure 129/58 L 105/53 L Pulse Oximetry 95 97 Oxygen Delivery Method Room Air Room Air BMI result Body Mass Index 34.5 Labs 04/02/25 07:46 04/02/25 07:46 Labs: Laboratory Results - last 48 hr 04/03/25 04/03/25 04/04/25 16:15 20:31 06:42 POC Glucose 331 H 296 H 153 H 04/04/25 04/04/25 04/04/25 11:31 16:22 20:02 POC Glucose 256 H 259 H 262 H 04/05/25 04/05/25 06:37 11:20 POC Glucose 173 H 134 H Medications Medications Current Medications Acetaminophen (Acetaminophen 325 Mg Tablet) 975 mg PO TID PRN PRN Reason: Pain, Moderate Last Admin: 04/03/25 11:10 Dose: 975 mg Al Hydroxide/Mg Hydroxide (Magnesium Hydrox/Alum Hydrox 30 Ml Oral.Susp) 30 ml PO Q6H PRN PRN Reason: Heartburn/Nausea Aspirin (Aspirin Enteric Coated 81 Mg Tablet.) 81 mg PO DAILY [facility] Last Admin: 04/05/25 09:12 Dose: 81 mg Atorvastatin Calcium (Atorvastatin Calcium 40 Mg Tablet) 40 mg PO DAILY [facility] Last Admin: 04/05/25 09:12 Dose: 40 mg Celecoxib (Celecoxib 200 Mg Capsule) 200 mg PO BID [facility] Last Admin: 04/05/25 09:12 Dose: 200 mg Cyanocobalamin (Cyanocobalamin (Vitamin B-12) 1,000 Mcg Tablet) 1,000 mcg PO DAILY [facility] Last Admin: 04/05/25 09:12 Dose: 1,000 mcg Ferrous Sulfate (Ferrous Sulfate 324 Mg Tablet.) 324 mg PO MoWeFr [facility] Last Admin: 04/05/25 09:50 Dose: 324 mg Fludrocortisone Acetate (Fludrocortisone Acetate 0.1 Mg Tablet) 0.2 mg PO DAILY [facility] Last Admin: 04/05/25 09:12 Dose: 0.2 mg Gabapentin (Gabapentin 100 Mg Capsule) 100 mg PO TID [facility] Last Admin: 04/05/25 14:47 Dose: 100 mg Hydrocortisone (Hydrocortisone 10 Mg Tablet) 5 mg PO DAILY@1200 [facility] Last Admin: 04/05/25 12:08 Dose: 5 mg Hydrocortisone (Hydrocortisone 10 Mg Tablet) 20 mg PO DAILY [facility] Last Admin: 04/05/25 09:50 Dose: 20 mg Hydrocortisone Sodium Succinate (Hydrocortisone Sod Succ/Pf 100 Mg Vial) 100 mg IM ONCE PRN PRN Reason: ADRENAL CRISIS Hydroxyzine HCl (Hydroxyzine Hcl 25 Mg Tablet) 25 mg PO Q6H PRN PRN Reason: mild anxiety Insulin Glargine (Insulin Glargine,Hum.Rec.Anlog 100 Unit/Ml 10 Ml Vial) 30 unit SUBCUT BEDTIME [facility] Last Admin: 04/04/25 21:08 Dose: 30 unit Insulin Human Lispro (Insulin Lispro 100 Unit/Ml 3 Ml Vial) 0 unit SUBCUT QIDACHS [facility]; Protocol Last Admin: 04/05/25 12:09 Dose: Not Given Lidocaine (Lidocaine 4 % Patch Adh..Patch) 4 patch TRANSDERMA DAILY [facility]; Protocol Last Admin: 04/05/25 12:10 Dose: Not Given Magnesium Hydroxide (Milk Of Magnesia 30 Ml Oral.Susp) 30 ml PO DAILY PRN PRN Reason: Constipation Magnesium Oxide (Magnesium Oxide 400 Mg Tablet) 400 mg PO DAILY [facility] Last Admin: 04/05/25 09:12 Dose: 400 mg Multi-Ingred Cream/Lotion/Oil/Oint (Mineral Oil/Petrolatum,White 106 Gm Tube) 1 appl TOPICAL BID [facility]; Protocol Last Admin: 04/05/25 09:51 Dose: 1 appl Nicotine Polacrilex (Nicotine Polacrilex 2 Mg Gum) 4 mg BUCCAL Q2H PRN PRN Reason: Nicotine Cravings Sertraline HCl (Sertraline Hcl 25 Mg Tablet) 125 mg PO DAILY [facility] Sumatriptan Succinate (Sumatriptan Succinate 50 Mg Tablet) 50 mg PO Q2H PRN PRN Reason: Migraine Headache Trazodone HCl (Trazodone Hcl 100 Mg Tablet) 100 mg PO BEDTIME PRN PRN Reason: Insomnia Last Admin: 04/04/25 21:07 Dose: 100 mg Vitamin D (Cholecalciferol (Vitamin D3) 25 Mcg Tablet) 25 mcg PO DAILY [facility] Last Admin: 04/05/25 09:12 Dose: 25 mcg Allergies Allergies Allergy/AdvReac Type Severity Reaction Status Date / Time Penicillins (PCN) Allergy Rash Verified 04/01/25 00:43 Assessment & Plan Assessment & Plan (1) Occipital neuralgia: Status: Acute Code(s): M54.81 - Occipital neuralgia (2) MDD (major depressive disorder), recurrent episode, moderate: Status: Acute Code(s): F33.1 - Major depressive disorder, recurrent, moderate (3) PTSD (post-traumatic stress disorder): Status: Acute Code(s): F43.10 - Post-traumatic stress disorder, unspecified Plan HPI: patient is a 64 years old Icelandic speaking female with past history of depression, PTSD, sleep apnea CVA, chronic back and shoulder pain, unretractable headache who presented to the emergency room with ongoing evidence of worsening depression, hopelessness with suicidal thoughts. She has been having suicidal thoughts in the long period of time on and off, does not find a reason to continue living with the her son. Feeling pressure to be alive by social. History of severe overdose suicidal attempt after her son passed 3 years ago where she was admitted to [facility] they told me I have a slight break . She do not think she going to be get over with the of her son who due to cancer. Increased depression, increased irritable mood, especially after the stroke last year. The symptoms got worse in the past 3 weeks. She has nursing service director coming to the house to have per 10 hours a day. VNA also comes daily to manage her medication and insulin, using medical beds at home, and sometimes needs a walker, using CPAP at bedtime for sleep. Speech was within normal limit, however some stuttering observe when she gets anxious. Alert and oriented x3. No SI/SIB/HI/AVH. Formulation/clinical reasoning: Suicidal thoughts, worsening depression and anxiety in the past 3 weeks, feeling hopeless. Grieving the of her son even though he 3 years ago due to cancer, serious suicide attempts overdose on pills after he passed. Feel like she never going to get over over with the of her son. Depression, PTSD, sleep apnea severe retractable headache, lowers back and shoulders pain that never resolved. Given the above information, patient could be benefit to be in restrictive environment for her own safety. We will continue to monitor her mental status change, adjust medication to address depression and anxiety, and refer patient to outpatient psychiatry services. Hospital course: 04/01/25: Continue with home medications with some changing my the patient requests in terms of psychotropic medications. Reports that BuSpar is not helpful. Sertraline is helpful and agreed to have it increased for depression. Patient good like to taper off from gabapentin which is not helpful for her pain nor psychiatrically. Sertraline increased from 75 to 100 mg daily for depression Gabapentin taper down from 300 mg to 200 t.i.d. for pain/mood Continue with other home medications. 04/02/25: CPAP at night, slept better than the night before, calm pleasant and cooperative, mostly isolated him herself in bed. Denies depression or anxiety today. Denies safety concerns. Retract her 3 day. Mood out to [place] which she is happy about. No behavior issues. Doc to doc done prior to transfer. Plan Patient on 15 minute checks for safety. 5 min check at night for CPAP. Admitted to [facility]. Retracted 3 days Medication trials was not helpful: Cymbalta give her vivid dream and increase suicidal thoughts Daughter is her HCP. Not available in chart. Work with treatment team to do collateral and aftercare follow-up appointments. Patient has psychiatrist PCP. No outpatient therapist. She is not interested in referral to new outpatient therapist. She has been working with OT and PT. Patient has a VNA. Due to medical necessary, patient is appropriate to transfer to [facility]. Seen by Hospitalist on 04/01/25. Some abnormal lab results regarding triglyceride, A1c, vitamin B12 is high. TSH and free T4 within normal limits. 04/03 - no changes in mgt plan - will review blood sugar mgt with patient tomorrow 04/04: adjust trazodone to 100 mg QHS PRN insomnia 04/05: DC buspar, decrease gabapentin to 100 BID, increase zoloft to 125 mg daily. planning for discharge . otherwise continue current mgmt. Reason for continued inpatient stay Substantial Risk for: harm to self, inability to function and rapid decompensation Time Spent With Patient Time: Total time managing care of this patient today __25__ minutes.
[2025-04-05 16:22] LABS: Glucose, Whole Blood 412 mg/dL (60-115)
--- NOTE | 2025-04-05 16:37 | PC.NURSE ---
Dr Palomino notified of blood sugar elevation
[2025-04-05 20:00] VITALS: BP 125/58; PULSE 60; RESP 18; TEMP 36.5; O2SAT 99
[2025-04-05] MEDS: Insulin Glargine,Hum.rec.anlog 100 UNIT/ML 10 ML VIAL 30 UNIT SUBCUT (20:30)
[2025-04-05 20:31] LABS: Glucose, Whole Blood 262 mg/dL (60-115)
[2025-04-06 06:41] LABS: Glucose, Whole Blood 139 mg/dL (60-115)
[2025-04-06 08:00] VITALS: BP 125/60; PULSE 49; RESP 14; O2SAT 97
[2025-04-06] MEDS: Aspirin Enteric Coated 81 MG TABLET.DR PO (08:39)
[2025-04-06] MEDS: Mineral Oil/Petrolatum,White 106 GM Tube 1 APPL TOPICAL ×2 (08:54→20:16)
[2025-04-06 11:25] LABS: Glucose, Whole Blood 154 mg/dL (60-115)
--- NOTE | 2025-04-06 13:16 | HO.PSYCHPN ---
Subjective Subjective Date of Service: 04/06/25 Reason For Visit: F32 Interim History: in bed, in a good humor. states she feels well, no side effects from med changes. agreeable to DC gabapentin entirely. planning for DC . Mental Status Exam Mental Status Exam Narrative: Patient is alert and oriented x3; behavior is cooperative, friendly; patient is not in distress; dressed in casual attire with adequate hygiene she was lying in bed; mood is described as good and affect congruent; eye contact appropriate; Speech is normal rate, volume and prosody and not pressured; no stuttering during assessment today, no psychomotor agitation/retardation present; thought process is organized and goal directed; Thought content is WNL, pertinent to relevant topics and without any delusional content, paranoid ideation or grandiosity; denies any SI/SIB/HI. there is no evidence of perceptual disturbance. Patient's insight and judgment improving. Diagnostics Vital Signs (24Hr): Vital Signs - 24 hr 04/05/25 20:00 04/06/25 08:00 Temperature 97.7 F Pulse Rate 60 49 L Respiratory Rate 18 14 Blood Pressure 125/58 L 125/60 Pulse Oximetry 99 97 Oxygen Delivery Method Room Air BMI result Body Mass Index 34.5 Labs 04/02/25 07:46 04/02/25 07:46 Labs: Laboratory Results - last 48 hr 04/04/25 04/04/25 04/05/25 16:22 20:02 06:37 POC Glucose 259 H 262 H 173 H 04/05/25 04/05/25 04/05/25 11:20 16:19 20:24 POC Glucose 134 H 412 H* 262 H 04/06/25 04/06/25 06:36 11:22 POC Glucose 139 H 154 H Medications Medications Current Medications Acetaminophen (Acetaminophen 325 Mg Tablet) 975 mg PO TID PRN PRN Reason: Pain, Moderate Last Admin: 04/06/25 12:55 Dose: 975 mg Al Hydroxide/Mg Hydroxide (Magnesium Hydrox/Alum Hydrox 30 Ml Oral.Susp) 30 ml PO Q6H PRN PRN Reason: Heartburn/Nausea Aspirin (Aspirin Enteric Coated 81 Mg Tablet.) 81 mg PO DAILY [facility] Last Admin: 04/06/25 08:39 Dose: 81 mg Atorvastatin Calcium (Atorvastatin Calcium 40 Mg Tablet) 40 mg PO DAILY [facility] Last Admin: 04/06/25 08:39 Dose: 40 mg Celecoxib (Celecoxib 200 Mg Capsule) 200 mg PO BID [facility] Last Admin: 04/06/25 08:39 Dose: 200 mg Cyanocobalamin (Cyanocobalamin (Vitamin B-12) 1,000 Mcg Tablet) 1,000 mcg PO DAILY [facility] Last Admin: 04/06/25 08:38 Dose: 1,000 mcg Ferrous Sulfate (Ferrous Sulfate 324 Mg Tablet.) 324 mg PO MoWeFr [facility] Last Admin: 04/05/25 09:50 Dose: 324 mg Fludrocortisone Acetate (Fludrocortisone Acetate 0.1 Mg Tablet) 0.2 mg PO DAILY [facility] Last Admin: 04/06/25 08:42 Dose: 0.2 mg Gabapentin (Gabapentin 100 Mg Capsule) 100 mg PO TID [facility] Last Admin: 04/06/25 08:42 Dose: 100 mg Hydrocortisone (Hydrocortisone 10 Mg Tablet) 5 mg PO DAILY@1200 [facility] Last Admin: 04/06/25 11:34 Dose: 5 mg Hydrocortisone (Hydrocortisone 10 Mg Tablet) 20 mg PO DAILY [facility] Last Admin: 04/06/25 08:41 Dose: 20 mg Hydrocortisone Sodium Succinate (Hydrocortisone Sod Succ/Pf 100 Mg Vial) 100 mg IM ONCE PRN PRN Reason: ADRENAL CRISIS Hydroxyzine HCl (Hydroxyzine Hcl 25 Mg Tablet) 25 mg PO Q6H PRN PRN Reason: mild anxiety Last Admin: 04/05/25 20:43 Dose: 25 mg Insulin Glargine (Insulin Glargine,Hum.Rec.Anlog 100 Unit/Ml 10 Ml Vial) 30 unit SUBCUT BEDTIME [facility] Last Admin: 04/05/25 20:30 Dose: 30 unit Insulin Human Lispro (Insulin Lispro 100 Unit/Ml 3 Ml Vial) 0 unit SUBCUT QIDACHS [facility]; Protocol Last Admin: 04/06/25 11:32 Dose: 2 unit Lidocaine (Lidocaine 4 % Patch Adh..Patch) 4 patch TRANSDERMA DAILY [facility]; Protocol Last Admin: 04/06/25 08:55 Dose: Not Given Magnesium Hydroxide (Milk Of Magnesia 30 Ml Oral.Susp) 30 ml PO DAILY PRN PRN Reason: Constipation Magnesium Oxide (Magnesium Oxide 400 Mg Tablet) 400 mg PO DAILY [facility] Last Admin: 04/06/25 08:41 Dose: 400 mg Multi-Ingred Cream/Lotion/Oil/Oint (Mineral Oil/Petrolatum,White 106 Gm Tube) 1 appl TOPICAL BID [facility]; Protocol Last Admin: 04/06/25 08:54 Dose: 1 appl Nicotine Polacrilex (Nicotine Polacrilex 2 Mg Gum) 4 mg BUCCAL Q2H PRN PRN Reason: Nicotine Cravings Sertraline HCl (Sertraline Hcl 25 Mg Tablet) 125 mg PO DAILY [facility] Last Admin: 04/06/25 08:41 Dose: 125 mg Sumatriptan Succinate (Sumatriptan Succinate 50 Mg Tablet) 50 mg PO Q2H PRN PRN Reason: Migraine Headache Trazodone HCl (Trazodone Hcl 100 Mg Tablet) 100 mg PO BEDTIME PRN PRN Reason: Insomnia Last Admin: 04/05/25 20:43 Dose: 100 mg Vitamin D (Cholecalciferol (Vitamin D3) 25 Mcg Tablet) 25 mcg PO DAILY [facility] Last Admin: 04/06/25 08:42 Dose: 25 mcg Allergies Allergies Allergy/AdvReac Type Severity Reaction Status Date / Time Penicillins (PCN) Allergy Rash Verified 04/01/25 00:43 Assessment & Plan Assessment & Plan (1) Occipital neuralgia: Status: Acute Code(s): M54.81 - Occipital neuralgia (2) MDD (major depressive disorder), recurrent episode, moderate: Status: Acute Code(s): F33.1 - Major depressive disorder, recurrent, moderate (3) PTSD (post-traumatic stress disorder): Status: Acute Code(s): F43.10 - Post-traumatic stress disorder, unspecified Plan HPI: patient is a 64 years old Moroccan speaking female with past history of depression, PTSD, sleep apnea CVA, chronic back and shoulder pain, unretractable headache who presented to the emergency room with ongoing evidence of worsening depression, hopelessness with suicidal thoughts. She has been having suicidal thoughts in the long period of time on and off, does not find a reason to continue living with the her son. Feeling pressure to be alive by social. History of severe overdose suicidal attempt after her son passed 3 years ago where she was admitted to [facility] they told me I have a slight break . She do not think she going to be get over with the of her son who due to cancer. Increased depression, increased irritable mood, especially after the stroke last year. The symptoms got worse in the past 3 weeks. She has nursing home manager coming to the house to have per 10 hours a day. VNA also comes daily to manage her medication and insulin, using medical beds at home, and sometimes needs a walker, using CPAP at bedtime for sleep. Speech was within normal limit, however some stuttering observe when she gets anxious. Alert and oriented x3. No SI/SIB/HI/AVH. Formulation/clinical reasoning: Suicidal thoughts, worsening depression and anxiety in the past 3 weeks, feeling hopeless. Grieving the of her son even though he 3 years ago due to cancer, serious suicide attempts overdose on pills after he passed. Feel like she never going to get over over with the of her son. Depression, PTSD, sleep apnea severe retractable headache, lowers back and shoulders pain that never resolved. Given the above information, patient could be benefit to be in restrictive environment for her own safety. We will continue to monitor her mental status change, adjust medication to address depression and anxiety, and refer patient to outpatient psychiatry services. Hospital course: 04/01/25: Continue with home medications with some changing my the patient requests in terms of psychotropic medications. Reports that BuSpar is not helpful. Sertraline is helpful and agreed to have it increased for depression. Patient good like to taper off from gabapentin which is not helpful for her pain nor psychiatrically. Sertraline increased from 75 to 100 mg daily for depression Gabapentin taper down from 300 mg to 200 t.i.d. for pain/mood Continue with other home medications. 04/02/25: CPAP at night, slept better than the night before, calm pleasant and cooperative, mostly isolated him herself in bed. Denies depression or anxiety today. Denies safety concerns. Retract her 3 day. Mood out to [place] which she is happy about. No behavior issues. Doc to doc done prior to transfer. Plan Patient on 15 minute checks for safety. 5 min check at night for CPAP. Admitted to [facility]. Retracted 3 days Medication trials was not helpful: Cymbalta give her vivid dream and increase suicidal thoughts Daughter is her HCP. Not available in chart. Work with treatment team to do collateral and aftercare follow-up appointments. Patient has psychiatrist PCP. No outpatient therapist. She is not interested in referral to new outpatient therapist. She has been working with OT and PT. Patient has a VNA. Due to medical necessary, patient is appropriate to transfer to [facility]. Seen by Hospitalist on 04/01/25. Some abnormal lab results regarding triglyceride, A1c, vitamin B12 is high. TSH and free T4 within normal limits. 04/03 - no changes in mgt plan - will review blood sugar mgt with patient tomorrow 04/04: adjust trazodone to 100 mg QHS PRN insomnia 04/05: DC buspar, decrease gabapentin to 100 BID, increase zoloft to 125 mg daily. planning for discharge . otherwise continue current mgmt. 04/06: feeling well, full range of affect. DC gabapentin entirely. continue current mgmt otherwise. planning for DC. Reason for continued inpatient stay Substantial Risk for: inability to function and rapid decompensation Time Spent With Patient Time: Total time managing care of this patient today __25__ minutes.
[2025-04-06 16:23] LABS: Glucose, Whole Blood 221 mg/dL (60-115)
[2025-04-06 20:00] VITALS: BP 167/74; PULSE 70; RESP 16; TEMP 36.1; O2SAT 98
[2025-04-06] MEDS: Insulin Glargine,Hum.rec.anlog 100 UNIT/ML 10 ML VIAL 30 UNIT SUBCUT (20:21)
[2025-04-06 20:30] LABS: Glucose, Whole Blood 202 mg/dL (60-115)
[2025-04-07 06:39] LABS: Glucose, Whole Blood 208 mg/dL (60-115)
[2025-04-07 08:00] VITALS: BP 109/51; PULSE 55; RESP 14; TEMP 36.7; O2SAT 96
[2025-04-07] MEDS: Aspirin Enteric Coated 81 MG TABLET.DR PO (10:02)
[2025-04-07] MEDS: Mineral Oil/Petrolatum,White 106 GM Tube 1 APPL TOPICAL ×2 (10:02→21:17)
[2025-04-07] MEDS: Ferrous Sulfate 324 MG TABLET.DR PO (10:08)
[2025-04-07 11:24] LABS: Glucose, Whole Blood 127 mg/dL (60-115)
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
[2025-04-07 16:16] LABS: Glucose, Whole Blood 259 mg/dL (60-115)
[2025-04-07 20:00] VITALS: BP 139/72; PULSE 58; RESP 17; TEMP 36.4; O2SAT 98
[2025-04-07] MEDS: Insulin Glargine,Hum.rec.anlog 100 UNIT/ML 10 ML VIAL 30 UNIT SUBCUT (20:57)
[2025-04-07 21:16] LABS: Glucose, Whole Blood 318 mg/dL (60-115)
[2025-04-08 06:35] LABS: Glucose, Whole Blood 157 mg/dL (60-115)
[2025-04-08 08:00] VITALS: BP 142/68; PULSE 59; RESP 16; TEMP 36.3; O2SAT 96
[2025-04-08] MEDS: Aspirin Enteric Coated 81 MG TABLET.DR PO (09:40)
[2025-04-08] MEDS: Lidocaine 4 % Patch ADH..PATCH 4 PATCH TRANSDERMA (09:43)
[2025-04-08 11:07] LABS: Glucose, Whole Blood 148 mg/dL (60-115)
== END 2025-04-08 12:52 | disposition home or self-care (01) | DRG 885 ==
LOC: HO.PADLT16 04-01 07:55 → HO.PGERI 04-02 12:30
PROVIDERS: Admitting Provider Psychiatry & Neurology Psychiatry; Responsible Provider Nurse Practitioner Psychiatric/Mental Health; Visit Provider Psychiatry & Neurology Psychiatry
DX: F33.1 Major depressive disorder, recurrent, moderate (principal); R45.851 Suicidal ideations; E27.1 Primary adrenocortical insufficiency; M54.81 Occipital neuralgia; E78.5 Hyperlipidemia, unspecified; K74.60 Unspecified cirrhosis of liver; G89.29 Other chronic pain; G47.33 Obstructive sleep apnea (adult) (pediatric); M54.59 Other low back pain; Z62.810 Personal history of physical and sexual abuse in childhood; Z62.811 Personal history of psychological abuse in childhood; Z87.891 Personal history of nicotine dependence; Z79.4 Long term (current) use of insulin; Z79.82 Long term (current) use of aspirin; Z79.899 Other long term (current) drug therapy; F43.10 Post-traumatic stress disorder, unspecified
CPT/HCPCS: 36415; 80053; 80061; 82248; 82607; 82746; 82947; 83036; 84439; 84443; 85025; 93005

== ENCOUNTER 2025-03-31 22:57 | Outpatient (BNV) | payer MEDICARE, MEDICAID, SELFPAY | END 2025-04-03 19:40 | PROVIDERS: Admitting Provider Psychiatry & Neurology Psychiatry; Responsible Provider Nurse Practitioner Psychiatric/Mental Health; Visit Provider Internal Medicine | DX: Z13.6 Encounter for screening for cardiovascular disorders (principal); Z86.73 Personal history of transient ischemic attack (TIA), and cerebral infarction without residual deficits | CPT/HCPCS: 93010 ==

== ENCOUNTER → 2025-03-31 22:57 | Outpatient (BNV) | payer MEDICARE, MEDICAID, SELFPAY | PROVIDERS: Admitting Provider Psychiatry & Neurology Psychiatry; Responsible Provider Nurse Practitioner Psychiatric/Mental Health; Visit Provider Nurse Practitioner Family | DX: M54.81 Occipital neuralgia (principal) | CPT/HCPCS: 99222 ==

== ENCOUNTER → 2025-03-31 22:57 | Outpatient (BNV) | payer MEDICARE, MEDICAID, SELFPAY | PROVIDERS: Admitting Provider Psychiatry & Neurology Psychiatry; Responsible Provider Nurse Practitioner Psychiatric/Mental Health; Visit Provider Nurse Practitioner Psychiatric/Mental Health | DX: F33.1 Major depressive disorder, recurrent, moderate (principal); F43.11 Post-traumatic stress disorder, acute; M54.81 Occipital neuralgia | CPT/HCPCS: 99231; 99232; 99239 ==